=== PATIENT | female | born 1950 | race Caucasian/White ===

== ENCOUNTER 2021-03-19 13:00 | Outpatient (RCR) | payer MEDICARE, OTHER | END 2021-03-23 | disposition home or self-care (01) | LOC: WSPT | DX: G43.909 Migraine, unspecified, not intractable, without status migrainosus (principal); R42 Dizziness and giddiness ==

== ENCOUNTER 2021-04-15 15:30 | Outpatient (RCR) | payer MEDICARE, OTHER | END 2021-04-20 | disposition home or self-care (01) | LOC: WSPT | DX: G43.909 Migraine, unspecified, not intractable, without status migrainosus (principal) ==